=== PATIENT | female | born 2005 | race Caucasian/White ===

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

== ENCOUNTER 2025-01-03 18:41 | Emergency (ER) | payer OTHER, SELFPAY ==
--- NOTE | 2025-01-03 18:47 | ED_ITS ---
HPI - URI/Sore Throat General Chief Complaint: Upper Respiratory Infection Stated Complaint: Sore Throat/Neck Pain Time Seen by Provider: 01/03/25 18:57 Source: patient and RN notes reviewed Mode of arrival: ambulatory Limitations: no limitations History of Present Illness HPI Narrative: 19-year-old female presents with concern of for fever, sore throat, body aches, neck pain. She reports she started getting sick 2 weeks ago with fever, cough, body aches, runny nose, stuffy nose, sore throat. Reports most of the symptoms improved which she had a lingering cough for the last week. Reports today her symptoms worsened again with fever, neck pain, sore throat. MD elicited complaint: fever and sore throat Related Data Home Medications ?Medication ?Instructions ?Recorded ?Confirmed ?Last Taken ?Type epinephrine 0.3 mg/0.3 mL See Rx Instructions .Route .COMPLEX 07/15/22 03/10/23 Unknown History injection, auto-injector norgestimate 0.25 mg-ethinyl 1 tablet PO DAILY 07/15/22 03/10/23 Unknown History estradiol 35 mcg tablet (Yoselyn) Allergies Allergy/AdvReac Type Severity Reaction Status Date / Time tree nut Allergy Anaphylactic Verified 01/03/25 18:43 Shock Review of Systems Review of Systems: CONSTITUTIONAL: reports malaise, chills, fever. EYES: Denies visual changes, redness, or discharge. ENT: denies rhinorrhea, congestion, sinus pain, otalgia. Reports sore throat. CARDIOVASCULAR: Denies chest pain, palpitations, or edema. RESPIRATORY: Reports cough. Denies dyspnea. GASTROINTESTINAL: Denies abdominal pain, nausea, vomiting, diarrhea SKIN: Denies rash or itching. MUSCULOSKELETAL: reports myalgia. NEUROLOGIC: Denies headache. All systems reviewed & are unremarkable except as noted in HPI and below PMFSH Comments At time of signature, agree with nursing past medical, surgical, social and family history. There is no relevant family history pertinent to the presenting complaint Exam Narrative: GENERAL: Nontoxic-appearing, well-nourished, and in no acute distress. HEAD: Normocephalic EYES: PERRLA, conjunctivae clear ENT: Nares clear. Mucous membranes moist. TM pearly arzate with sharp light reflex bilaterally; no tragal tenderness. Oropharynx not erythematous without lesions. Tonsils not enlarged and without exudate, no drooling, no hoarseness, no trismus, uvula midline. NECK: Supple. Bilateral cervical lymphadenopathy CHEST: Clear to auscultation, breath sounds equal. No wheezing, rhonchi, rales, or stridor. No respiratory distress, speaks in full sentences. HEART: Regular rate and rhythm. No murmur heard. SKIN: Warm, clammy, no rash. NEURO: Alert and oriented x3. PSYCH: Normal mood and affect Course Course Emergency Course: Patient is aware of diagnosis, understands and agrees to treatment plan. Anticipatory guidance given. Patient agrees to follow-up as directed and is aware of reasons to seek care at the emergency department. Portions of this record may have been created with voice recognition software Level of Care: Express Care Visit Vital Signs Vital signs: Reviewed. MDM - URI/Sore Throat MDM Narrative Medical decision making narrative: Differential diagnosis considered: Fragoso virus, strep pharyngitis, allergic rhinitis, upper respiratory tract infection, sinusitis, rhinosinusitis, nasopharyngitis. viral pharyngitis, otitis media, otitis externa, pneumonia, bronchitis, viral cough syndrome, viral syndrome, and influenza. Exam findings show no acute concerns or changes; patient is non-toxic appearing and is in no distress. Patient is appropriate for outpatient treatment and follow-up. Lab Data Attestation: I reviewed the patient's lab results. Critical Care Time Critical Care Time Critical Care Time: No Discharge Plan Discharge Clinical Impression: Upper respiratory infection with cough and congestion Patient Disposition: Home, Self-Care Condition: Stable Instructions: Antibiotic Form, Fever in Adults (ED) Additional Instructions: 1) Please follow-up with your primary care doctor in the next 1-2 days. 2) If you have any worsening of symptoms or any other urgent concerns please go to the ER. 3) Please take medications as prescribed and continue taking your home medications as usual. 4) Please read and follow information included in discharge instructions. Patient Language: [place] Citizen Prescriptions: New amoxicillin-pot clavulanate 875-125 mg tablet 1 tablet PO Q12H 10 Days Qty: 20 0RF No Action norgestimate-ethinyl estradiol [Yoselyn] 0.25-35 mg-mcg tablet 1 tablet PO DAILY epinephrine 0.3 mg/0.3 mL auto-injector See Rx Instructions .ROUTE .COMPLEX Rx Instructions: Rx Follow-up/Referrals: Chuyita Raymond MD [Primary Care Provider] - Time of Disposition: 19:17
[2025-01-03 18:55] VITALS: BP 146/83; PULSE 132; RESP 18; TEMP 38.9; O2SAT 100
[2025-01-03 18:56] VITALS: TEMP 38.9
[2025-01-03] MEDS: IBUPROFEN 600 MG TABLET PO (18:56)
[2025-01-04 13:36] LABS: EDMONONEGPOS Negative (Negative)
[2025-01-04 13:36] LABS: EDCOVIDSCREEN Negative (Negative); EDINFLUASCREEN Negative (Negative); EDINFLUBSCREEN Negative (Negative); EDSTREPNEGPOS1 Negative (Negative)
== END 2025-01-03 19:20 | disposition home or self-care (01) ==
PROVIDERS: Emergency Provider Nurse Practitioner; PCP Pediatrics
DX: J06.9 Acute upper respiratory infection, unspecified (principal); R05.9 Cough, unspecified; Z20.822 Contact with and (suspected) exposure to COVID-19
CPT/HCPCS: 36416; 86308; 87081; 87426; 87804; 87880; 99213; A9270; G0463

== ENCOUNTER 2025-04-21 12:21 | Emergency (ER) | payer OTHER, SELFPAY ==
--- NOTE | 2025-04-21 12:25 | ED.GENADULT ---
HPI - General Adult General Chief complaint: Fever Stated complaint: fever Source: patient Mode of arrival: ambulatory Limitations: no limitations History of Present Illness HPI narrative: Patient is a 20-year-old female presenting with complaint of fever. She additionally reported include slight sore throat since Saturday. Reports single episode of nonbloody emesis on Saturday evening. treatment initiated prior to arrival include Motrin take approximately 45 minutes ago. No known exposure to COVID, flu, strep, pneumonia. no additional complaints. Related Data Home Medications ?Medication ?Instructions ?Recorded ?Confirmed ?Last Taken ?Type epinephrine 0.3 mg/0.3 mL See Rx Instructions .Route .COMPLEX 07/15/22 03/10/23 Unknown History injection, auto-injector norgestimate 0.25 mg-ethinyl 1 tablet PO DAILY 07/15/22 03/10/23 Unknown History estradiol 0.035 mg tablet (Yosleyn) Allergies Allergy/AdvReac Type Severity Reaction Status Date / Time tree nut Allergy Anaphylactic Verified 04/21/25 12:29 Shock Review of Systems Review of Systems: CONSTITUTIONAL: Denies body aches, chills, or sweats. EYES: Denies visual changes, redness, or discharge. ENT: Reports sore throat, Denies rhinorrhea, congestion or otalgia. CARDIOVASCULAR: Denies chest pain, palpitations, or edema. RESPIRATORY: Denies cough or dyspnea. GASTROINTESTINAL: Denies abdominal pain, nausea, vomiting, or diarrhea. GENITOURINARY: Denies dysuria,abnormal vaginal discharge or hematuria. SKIN: Denies rash, itching, or wounds. MUSCULOSKELETAL: Denies back pain, joint pain, or myalgia. NEUROLOGIC: Denies headache, numbness, tingling, or weakness. PSYCH: Denies depression or anxiety. All systems reviewed & are unremarkable except as noted in HPI and below Hematologic/Lymphatic: Hematologic/Lymphatic: Reports no additional hematologic/lymphatic complaints Exam Narrative: GENERAL: Well-appearing, well-nourished, and in no acute distress. HEAD: Normocephalic, atraumatic. EYES: EOMI. No redness or drainage. Conjunctivae normal. ENT: Mucous membranes pink and moist. Nares clear. No rhinorrhea. TMs normal bilaterally. Tonsils are 2+ bilaterally with mild erythema, without exudate or ulcerations. Uvula midline. NECK: Normal AROM. Supple. + anterior cervical lymphadenopathy. CHEST: No respiratory distress. Clear to auscultation. HEART: Regular rate and rhythm. No murmur appreciated. Normal peripheral pulses. ABDOMEN: Soft, nontender, nondistended, normal active bowel sounds. No CVAT MUSCULOSKELETAL: No bony tenderness. EXTREMITIES: Normal range of motion. No edema. SKIN: Warm, dry, no rash. Capillary refill normal. Normal skin turgor. NEURO: No focal deficits. Alert and oriented x3. Gait steady. PSYCH: Normal affect. No signs of depression or anxiety. Neck: Neck: no meningeal signs Course Course Level of Care: Express Care Visit Vital Signs Vital signs: Vital Signs Temperature 102.8 F H 04/21/25 12:30 Pulse Rate 120 H 04/21/25 12:30 Respiratory Rate 16 04/21/25 12:30 Blood Pressure 140/54 L 04/21/25 12:30 Pulse Oximetry 99 04/21/25 12:30 Oxygen Delivery Room Air 04/21/25 12:30 Temperature 102.8 F H 04/21/25 12:30 Pulse Rate 120 H 04/21/25 12:30 Respiratory Rate 16 04/21/25 12:30 Blood Pressure 140/54 L 04/21/25 12:30 Pulse Oximetry 99 04/21/25 12:30 Oxygen Delivery Room Air 04/21/25 12:30 Medical Decision Making MDM Narrative Medical decision making narrative: Pt's temp responded to motrin that she took [employer], HR remains elevated, all POC tests are without evidence of infection. Offered to transfer her to ER for further diagnostic work up/IV hydration-she declined. Strict GO TO ER precautions discussed at length with patient with verbal understanding. This dictation may have been done utilizing a voice recognition system. Attempts have been made to correct errors. However, there may be uncorrected grammatical, spelling, and recognition errors present. Vital Signs Vital Signs: Vital Signs Temperature 102.8 F H 04/21/25 12:30 Pulse Rate 120 H 04/21/25 12:30 Respiratory Rate 16 04/21/25 12:30 Blood Pressure 140/54 L 04/21/25 12:30 Pulse Oximetry 99 04/21/25 12:30 Oxygen Delivery Room Air 04/21/25 12:30 Temperature 102.8 F H 04/21/25 12:30 Pulse Rate 120 H 04/21/25 12:30 Respiratory Rate 16 04/21/25 12:30 Blood Pressure 140/54 L 04/21/25 12:30 Pulse Oximetry 99 04/21/25 12:30 Oxygen Delivery Room Air 04/21/25 12:30 Lab Data Lab results reviewed: Yes I reviewed the patient's lab results. Labs: Lab Results 04/21/25 Range/Units 12:59 POC Influenza A Ag Negative (Negative) POC Influenza B Ag Negative (Negative) POC SARS CoV-2 Ag Negative (Negative) POC Grp A Strep Screen Negative (Negative) Discharge Plan Discharge Clinical Impression: Fever, Acute sore throat Patient Disposition: Home Condition: Stable Instructions: Antibiotic Form, Fever in Adults (ED), Viral Syndrome (ED) Additional Instructions: Go straight to ER should your symptoms become worse or should any new symptoms develop Patient Language: [place] Prescriptions: No Action norgestimate-ethinyl estradiol [Yoselyn] 0.25-35 mg-mcg tablet 1 tablet PO DAILY epinephrine 0.3 mg/0.3 mL auto-injector See Rx Instructions .ROUTE .COMPLEX Rx Instructions: Rx Follow-up/Referrals: Chuyita Raymond MD [Primary Care Provider] - 04/21/25 Stand Alone Forms: Work/School Release IP Time of Disposition: 13:13
[2025-04-21 12:30] VITALS: BP 140/54; PULSE 120; RESP 16; TEMP 39.3; O2SAT 99
[2025-04-21 13:02] LABS: EDCOVIDSCREEN Negative (Negative); EDINFLUASCREEN Negative (Negative); EDINFLUBSCREEN Negative (Negative); EDSTREPNEGPOS1 Negative (Negative)
[2025-04-21 13:21] LABS: EDUAAPPEAR Clear; EDUABILI 1+ (Negative); EDUABLOOD 1+ (Negative); EDUACOLOR1 Yellow; EDUAGLUCOSE Negative (Negative); EDUAKETONE 2+ (Negative); EDUALEUKO Negative (Negative); EDUANITRATE Negative (Negative); EDUAPROTEIN 2+ (Negative); EDUASPGRAVITY 1.025; EDUAUROBILI 0.2
[2025-04-21 13:23] LABS: EDMONONEGPOS Negative (Negative)
[2025-04-21 13:29] VITALS: PULSE 128; TEMP 37.8; O2SAT 99
== END 2025-04-21 13:29 | disposition home or self-care (01) ==
PROVIDERS: Emergency Provider Registered Nurse; PCP Pediatrics
DX: J02.9 Acute pharyngitis, unspecified (principal); R50.9 Fever, unspecified; Z20.822 Contact with and (suspected) exposure to COVID-19
CPT/HCPCS: 36416; 81003; 86308; 87081; 87426; 87804; 87880; 99213; G0463